=== PATIENT | female | born 1950 | race Caucasian/White ===

== ENCOUNTER 2024-01-17 15:11 | Observation (INO) | payer OTHER, MEDICARE, SELFPAY ==
[2024-01-17] VITALS (14 sets, daily range): BP systolic 160–187; BP diastolic 70–105; PULSE 58–76; RESP 18–31; TEMP 36.7–37.2; O2SAT 95–99; BMI 46.0
--- NOTE | 2024-01-17 15:56 | DI.RAD.S_ITS ---
PROCEDURE: XR CHEST 1V INDICATIONS: Possible stroke TECHNIQUE: One view of the chest was acquired. COMPARISON: None. FINDINGS: Surgical changes and devices: None. Lungs and pleura: Lungs are clear. No pleural effusions or pneumothorax. Mediastinum: Mediastinal contours appear normal. Heart size is enlarged. Bones and chest wall: No suspicious bony lesions. Overlying soft tissues appear unremarkable. IMPRESSION: No acute cardiopulmonary pathology. Dictated by: Miguel A Borges M.D. on 01/17/2024 at 16:39 Approved by: Miguel A Borges M.D. on 01/17/2024 at 16:39
--- NOTE | 2024-01-17 15:56 | DI.CT.S_ITS ---
PROCEDURE: CT STROKE INDICATIONS: Positive BE-FAST, Stroke symptoms TECHNIQUE: Noncontrast 4.5 mm thick angled axial sections acquired from the foramen magnum to the vertex, with coronal reformats. For radiation dose reduction, the following was used: automated exposure control, adjustment of mA and/or kV according to patient size. COMPARISON: None. FINDINGS: Image quality: Diagnostic. CSF spaces: Basal cisterns are patent. No extra-axial fluid collections. The ventricles are symmetric in size and shape. Brain: No intracranial bleeds or masses. Focal hypodensity involving left side of the janet series 2, image 6 concerning for pontine infarction of indeterminate age. There is cerebral volume loss for age, with resultant ventricular and sulcal prominence. There are periventricular and deep white matter chronic small vessel ischemic changes. There is intracranial internal carotid artery atherosclerosis. Skull and face: Calvarium and visualized facial bones appear intact, without suspicious lesions. Sinuses: Visualized sinuses and mastoids are clear. IMPRESSION: 1. Finding could represent left pontine infarction of indeterminate age. No acute intracranial bleed, midline shift or mass effect. 2. Age related volume loss and moderate white matter chronic small vessel ischemic changes. Findings were reported to Dr. Packer in the ER on 01/17/2024 at 4:15 p.m.. This study fulfills neurological imaging criteria for inclusion or exclusion of acute stroke therapies based on available published neurological guidelines. Dictated by: Miguel A Borges M.D. on 01/17/2024 at 16:13 Approved by: Miguel A Borges M.D. on 01/17/2024 at 16:16
--- NOTE | 2024-01-17 16:03 | DI.CT.S_ITS ---
PROCEDURE: CT ANGIO HEAD AND NECK INDICATIONS: slurring of speech TECHNIQUE: After the administration of intravenous contrast, 1 mm thick sections acquired from the aortic arch through the [place]. 3-dimensional vnkjapw-lruuipsti-rqilwajxpr (MIP) and/or volume rendering reformats were acquired of the central intracranial vasculature and neck separately. For radiation dose reduction, the following was used: automated exposure control, adjustment of mA and/or kV according to patient size. COMPARISON: None. FINDINGS: Image quality: Diagnostic. BRAIN: CSF spaces: Ventricles are normal in size and shape. Basal cisterns are patent. No extra-axial fluid collections. Brain: No significant abnormality of the brain can be seen. Skull and face: Calvarium and facial bones appear intact, without suspicious lesions. Orbits appear normal. Sinuses: Mucosal thickening in right maxillary sinus is seen. Bilateral ethmoid air cells are well aerated. HEAD CT ANGIOGRAPHY: Anterior circulation: Intracranial internal carotid arteries are normal in size and flow. The flow within the paired anterior cerebral arteries is normal and symmetric. The flow within the middle cerebral arteries is normal and symmetric. The anterior communicating artery is seen. No aneurysms are seen. Posterior circulation: Visualized portions of the vertebral arteries demonstrate normal caliber, and join to form a normal appearing basilar artery. Flow within the posterior cerebral arteries is normal and symmetric. No aneurysms are seen. NECK CT ANGIOGRAPHY: Carotid system: The great vessels demonstrate a conventional anatomy as they arise from the aortic arch. The origins of the common carotid arteries appear patent. The common carotid arteries demonstrate normal caliber and courses. The bifurcation regions are both widely patent. The internal carotid arteries demonstrate normal calibers and courses. Posterior circulation: The origins of the vertebral arteries both appear widely patent. Dominant right vertebral artery is seen. The more superior extracranial portions of both vertebral arteries also demonstrate normal courses and calibers. They join to form a normal appearing basilar artery. Soft tissues: Visualized neck soft tissues demonstrate no suspicious abnormalities. Bones: No suspicious bony lesions. Visualized cervical spine appears normally aligned. IMPRESSION: 1. No significant intracranial arterial abnormality is seen. 2. No significant abnormality is seen within the arteries of the neck. 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 3. No area of abnormal intracranial enhancement. 4. Right maxillary sinusitis. Any quantitative measurements of stenosis were performed using NASCET criteria. Dictated by: Miguel A Borges M.D. on 01/17/2024 at 16:36 Approved by: Miguel A Borges M.D. on 01/17/2024 at 16:39
[2024-01-17 16:08] LABS: Add Manual Diff / Slide Review NO; Basophils Absolute Auto 0 /uL (0-100); Basophils Percent Auto 0.2 % (0-2); Eosinophils Absolute Auto 200 /uL (0-450); Eosinophils Percent Auto 1.9 % (2-4); Hematocrit 36.9 % (36-46); Hemoglobin 11.7 g/dL (12.0-16.0); Lymphocytes Absolute Auto 1500 /uL (1100-4500); Mean Corpuscular HGB Conc 31.6 % (30-36); Mean Corpuscular Hemoglobin 21.1 PG (26-34); Mean Corpuscular Volume 66.5 fL (80-100); Monocytes Absolute Auto 600 /uL (0-900); Neutrophils Absolute Auto 6200 /uL (1500-7000); Neutrophils Percent Auto 72.9 % (50-75); Platelet Count 223 X10^3/uL (150-400); Red Blood Cell Count 5.55 X10^6/uL (4.0-5.2); Red Cell Distribution Width 15.6 % (11.6-14.8); White Blood Cell Count 8.5 X10^3/uL (4.5-11.0)
[2024-01-17 16:12] LABS: INR 0.9 (0.9-1.3); Prothrombin Time 10.8 SECONDS (9.4-12.5)
[2024-01-17 16:14] LABS: PTT Partial Thromboplastin Tim 27 SECONDS (25.1-36.5)
--- NOTE | 2024-01-17 16:14 | ED.NEUROSD ---
HPI - Neuro Symptoms/Deficit General Chief Complaint: Neuro Symptoms/Deficit Stated Complaint: slurred speech Time Seen by Provider: 01/17/24 16:03 Source: patient Mode of arrival: Ambulatory History of Present Illness HPI Narrative: Patient is 73-year-old female history of pulmonary hypertension hypertension hyperlipidemia obesity presenting today with slurring of speech. She is currently visiting from [place]. Her sister reports that she reviewed tape from the ring camera and at 5:30 a.m. this morning she was found talking normally to the. By about 830 she had some slurring of speech. Sister reports that she was trying to tell her her sprinkler head was broken however she could not quite understand her in her speech was very slurred. EMS was called and evaluated by EMS however they did not transport her patient did not want to come. She had no facial droop with a time numbness tingling or weakness. Sister reports that speech difficulty has come and gone throughout the day and by this afternoon she started to notice some left facial droop. At which point she brought her to the emergency department. Patient continues to have some mild slurring of speech On Anticoagulants: No Related Data Home Medications Medication Instructions Recorded Confirmed acetaminophen 500 mg capsule 1,000 mg PO BID 01/17/24 01/17/24 aspirin 81 mg chewable tablet 81 mg PO 1XD 01/17/24 01/17/24 cholecalciferol (vitamin D3) 25 25 mcg PO DAILY 01/17/24 01/17/24 mcg (1,000 unit) capsule (Vitamin D3) hydrochlorothiazide 12.5 mg tablet 12.5 mg PO DAILY 01/17/24 01/17/24 lisinopril 40 mg tablet 40 mg PO BID 01/17/24 01/17/24 milk thistle 500 mg capsule 1,000 mg PO BID 01/17/24 01/17/24 nebivolol 5 mg tablet (Bystolic) 5 mg PO DAILY 01/17/24 01/17/24 sildenafil (pulm.hypertension) 20 20 mg PO TID 01/17/24 01/17/24 mg tablet simvastatin 10 mg tablet 10 mg PO ONCE PM 01/17/24 01/17/24 Allergies Allergy/AdvReac Type Severity Reaction Status Date / Time No Known Drug Allergies Allergy Verified 01/17/24 15:48 Review of Systems Hematologic/Lymphatic On Anticoagulants: No Patient History Medical History Pulmonary HTN HLD (hyperlipidemia) HTN (hypertension) Obesity MANDY (obstructive sleep apnea) Social History Smoking Status: Never smoker alcohol intake: current Smoking Status: Never smoker Substance Use Type: does not use Exam Initial Vital Signs Initial Vital Signs: Vital Signs Temperature 98.9 F 01/17/24 15:40 Pulse Rate 71 01/17/24 15:40 Respiratory Rate 18 01/17/24 15:40 Blood Pressure 184/105 H 01/17/24 15:40 Pulse Oximetry 96 01/17/24 15:40 Oxygen Delivery Method Room Air 01/17/24 15:40 GENERAL: Alert 73-year-old female. HEENT: Head atraumatic,EOMI, pupils reactive, face symmetric, moist mucous membranes CARDIOVASCULAR: Regular rate and rhythm without murmurs, rubs or gallops. RESPIRATORY: Breath sounds equal bilaterally, no wheezes rales or rhonchi. ABDOMEN: Soft, nontender. Normoactive bowel sounds all 4 quadrants. No guarding or rebound. EXTREMITIES: Normal range of motion, no clubbing or edema. Neurovascularly intact NEUROLOGICAL: Alert and oriented x4.Normal gait and speech. Cranial nerves II through XII grossly intact. Good cglitu-vc-xuhv, good spkg-qt-[id number], strength equal bilaterally, mild slurring of speech sensation in tact to soft touch bilaterally, no visual changes, mild left facial droop SKIN: Sunburn noted on all extremities with demarcation Scores NIH Stroke Scale Level of Conciousness: Alert, keenly responsive Ask month/age: Answers both questions correctly. Open/close eyes, close hand: Performs both tasks correctly Best gaze horizontal: Normal Visual murillo: No visual loss Facial palsy: Minor paralysis, flattened nasolabial fold, asymmetry on smiling Left arm drift: No drift for full 10 sec Right arm drift: No drift for full 10 sec Left leg drift: No drift for full 5 sec Right leg drift: No drift for full 5 sec Limb ataxia: Absent Sensory on face/arms/legs: Normal, no sensory loss Best language: Mild to moderate, slurs some words Dysarthria: Normal Extinction or inattention: No abnormality Total NIH Stroke scale score: 2 Course Orders Ordered: ED Orders 01/17/24 15:55 Complete Blood Count AUTO DIFF Stat Comprehensive Metabolic Panel Stat Magnesium Stat PTT Partial Thromboplastin Dom Stat Prothrombin Time INR Stat Troponin & CK Cardiac Panel Stat 01/17/24 15:56 CT Stroke Stat XR chest 1V Stat 01/17/24 16:03 CT angio head and neck Stat 01/17/24 16:55 Urine Drug Screen, Rapid Stat Acetaminophen (Acetaminophen 325 Mg Tablet) 650 mg PO Q6H PRN PRN Reason: Fever/Mild Pain (1-3) Aspirin (Aspirin Ec 81 Mg Tablet) 81 mg PO DAILY [facility] Atorvastatin Calcium (Atorvastatin 20 Mg Tablet) 40 mg PO BEDTIME [facility] Clopidogrel Bisulfate (Clopidogrel 75 Mg Tablet) 75 mg PO DAILY [facility] Hydrochlorothiazide (Hydrochlorothiazide 25 Mg Tablet) 12.5 mg PO DAILY [facility] Lisinopril (Lisinopril 20 Mg Tablet) 40 mg PO BID [facility] Metoprolol Succinate (Metoprolol Er 25 Mg Tablet) 25 mg PO DAILY [facility] Naloxone HCl (Naloxone 0.4 Mg/Ml Vial) 0.2 mg IV Q2MIN PRN PRN Reason: Opiate Reversal Ondansetron HCl (Ondansetron 4 Mg/2 Ml Inj) 4 mg IV Q8HR PRN PRN Reason: Nausea And Vomiting Vitamin D (Cholecalciferol (Vitamin D3) 1,000 Unit Tablet) 1,000 unit PO DAILY [facility] Discontinued Medications Aspirin (Aspirin Ec 325 Mg Tablet) 325 mg PO NOW ONE Stop: 01/17/24 16:27 Last Admin: 01/17/24 16:30 Dose: 325 mg Documented By: FROYLAN Clopidogrel Bisulfate (Clopidogrel 75 Mg Tablet) 300 mg PO NOW ONE Stop: 01/17/24 18:39 Ondansetron HCl (Ondansetron 4 Mg/2 Ml Inj) 4 mg IV NOW PRN PRN Reason: Nausea And Vomiting Ondansetron HCl (Ondansetron 4 Mg Odt) 4 mg SL NOW PRN PRN Reason: Nausea And Vomiting Vital Signs Vital signs: Vital Signs - 8 hr 01/17/24 15:40 01/17/24 15:59 01/17/24 16:00 Temperature 98.9 F Pulse Rate 71 75 76 Respiratory Rate 18 25 H 27 H Blood Pressure 184/105 H Pulse Oximetry 96 96 96 Oxygen Delivery Method Room Air 01/17/24 16:29 01/17/24 16:29 01/17/24 16:30 Temperature Pulse Rate 73 72 Respiratory Rate 23 28 H Blood Pressure 186/81 H Pulse Oximetry 98 97 Oxygen Delivery Method 01/17/24 17:00 01/17/24 17:01 01/17/24 17:01 Temperature Pulse Rate 69 66 Respiratory Rate 19 20 Blood Pressure 178/70 H Pulse Oximetry 98 98 Oxygen Delivery Method 01/17/24 17:30 01/17/24 17:31 01/17/24 17:31 Temperature Pulse Rate 64 63 Respiratory Rate 21 31 H Blood Pressure 160/71 H Pulse Oximetry 98 98 Oxygen Delivery Method MDM - Neuro Symptoms/Deficit Lab Data 01/17/24 15:55 01/17/24 15:55 Labs: Lab Results 01/17/24 01/17/24 Range/Units 15:55 16:55 WBC 8.5 (4.5-11.0) X10^3/uL RBC 5.55 H (4.0-5.2) X10^6/uL Hgb 11.7 L (12.0-16.0) g/dL Hct 36.9 (36-46) % MCV 66.5 L (80-100) fL MCH 21.1 L (26-34) PG MCHC 31.6 (30-36) % RDW 15.6 H (11.6-14.8) % Plt Count 223 (150-400) X10^3/uL Neut % (Auto) 72.9 (50-75) % Lymph % (Auto) 18.0 L (25-40) % [place] % (Auto) 7.0 (3-14) % Eos % (Auto) 1.9 L (2-4) % Baso % (Auto) 0.2 (0-2) % Neut # (Auto) 6200 (3547-2910) /uL Lymph # (Auto) 1500 (6585-3105) /uL [place] # (Auto) 600 (0-900) /uL Eos # (Auto) 200 (0-450) /uL Baso # (Auto) 0 (0-100) /uL RBC Morphology See below Microcytosis 1+ H Ovalocytes 1+ H PT 10.8 (9.4-12.5) SECONDS INR 0.9 (0.9-1.3) APTT 27 (25.1-36.5) SECONDS Sodium 139 (137-145) mmol/L Potassium 4.1 (3.4-5.1) mmol/L Chloride 106 (98-107) mmol/L Carbon Dioxide 26 (22-32) mmol/L BUN 23 H (7-17) mg/dL Creatinine 1.08 H (0.52-1.04) mg/dL Estimated GFR 55 L (>60) mL/min BUN/Creatinine Ratio 21.3 (6-22) Glucose 105 (80-110) mg/dL Calcium 9.5 (8.4-10.2) mg/dL Magnesium 1.5 L (1.6-2.3) mg/dL Total Bilirubin 0.7 (0.2-1.3) mg/dL AST 26 (14-36) IU/L ALT 19 (<35) IU/L Alkaline Phosphatase 57 (38-126) U/L Total Creatine Kinase 184 H (30-135) U/L Troponin I < 0.012 (0.01-0.034) ng/mL Total Protein 7.2 (6.3-8.2) g/dL Albumin 4.2 (3.5-5.0) g/dL Globulin 3.0 (1.7-4.1) g/dL Albumin/Globulin Ratio 1.4 (1.0-2.8) U Opiates 300ng/mL cut Negative (Negative) Ur Oxycodone Screen Negative (Negative) Urine Methadone Screen Negative (Negative) Ur Barbiturates Screen Negative (Negative) U Tricyclic Antidepress Negative (Negative) Ur Phencyclidine Scrn Negative (Negative) Ur Amphetamines Screen Negative (Negative) U Methamphetamines Scrn Negative (Negative) Ur MDMA Scrn (Ecstasy) Negative (Negative) U Benzodiazepines Scrn Negative (Negative) Urine Cocaine Screen Negative (Negative) U Marijuana (THC) Screen Negative (Negative) Urine pH Normal (Normal) Urine Specific [place] Normal (Normal) Ur Creatinine Normal (Normal) Urine Dip Bedside Urine Glucose Negative Bedside Urine Bilirubin - Negative Bedside Urine Ketone - Negative Urine Specific [place] 1.005 Bedside Urine Occult Blood - Negative Bedside Urine pH 6.0 Bedside Urine Protein - Negative Bedside Urine Urobilinogen - Negative Bedside Urine Nitrite - Negative Bedside Urine Leukocytes - Negative Esterase Imaging Data CT scan - head: Radiologist's Impression: PROCEDURE: CT STROKE INDICATIONS: Positive BE-FAST, Stroke symptoms TECHNIQUE: Noncontrast 4.5 mm thick angled axial sections acquired from the foramen magnum to the vertex, with coronal reformats. For radiation dose reduction, the following was used: automated exposure control, adjustment of mA and/or kV according to patient size. COMPARISON: None. FINDINGS: Image quality: Diagnostic. CSF spaces: Basal cisterns are patent. No extra-axial fluid collections. The ventricles are symmetric in size and shape. Brain: No intracranial bleeds or masses. Focal hypodensity involving left side of the janet series 2, image 6 concerning for pontine infarction of indeterminate age. There is cerebral volume loss for age, with resultant ventricular and sulcal prominence. There are periventricular and deep white matter chronic small vessel ischemic changes. There is intracranial internal carotid artery atherosclerosis. Skull and face: Calvarium and visualized facial bones appear intact, without suspicious lesions. Sinuses: Visualized sinuses and mastoids are clear. IMPRESSION: 1. Finding could represent left pontine infarction of indeterminate age. No acute intracranial bleed, midline shift or mass effect. 2. Age related volume loss and moderate white matter chronic small vessel ischemic changes. Findings were reported to Dr. Packer in the ER on 01/17/2024 at 4:15 p.m.. This study fulfills neurological imaging criteria for inclusion or exclusion of acute stroke therapies based on available published neurological guidelines. Dictated by: Miguel A Borges M.D. on 01/17/2024 at 16:13 CTA - brain/neck: Radiologist's Impression: PROCEDURE: CT ANGIO HEAD AND NECK INDICATIONS: slurring of speech TECHNIQUE: After the administration of intravenous contrast, 1 mm thick sections acquired from the aortic arch through the [place] of [place]. 3-dimensional vxvhtyh-latomtyrm-usfyhysiht (MIP) and/or volume rendering reformats were acquired of the central intracranial vasculature and neck separately. For radiation dose reduction, the following was used: automated exposure control, adjustment of mA and/or kV according to patient size. COMPARISON: None. FINDINGS: Image quality: Diagnostic. BRAIN: CSF spaces: Ventricles are normal in size and shape. Basal cisterns are patent. No extra-axial fluid collections. Brain: No significant abnormality of the brain can be seen. Skull and face: Calvarium and facial bones appear intact, without suspicious lesions. Orbits appear normal. Sinuses: Mucosal thickening in right maxillary sinus is seen. Bilateral ethmoid air cells are well aerated. HEAD CT ANGIOGRAPHY: Anterior circulation: Intracranial internal carotid arteries are normal in size and flow. The flow within the paired anterior cerebral arteries is normal and symmetric. The flow within the middle cerebral arteries is normal and symmetric. The anterior communicating artery is seen. No aneurysms are seen. Posterior circulation: Visualized portions of the vertebral arteries demonstrate normal caliber, and join to form a normal appearing basilar artery. Flow within the posterior cerebral arteries is normal and symmetric. No aneurysms are seen. NECK CT ANGIOGRAPHY: Carotid system: The great vessels demonstrate a conventional anatomy as they arise from the aortic arch. The origins of the common carotid arteries appear patent. The common carotid arteries demonstrate normal caliber and courses. The bifurcation regions are both widely patent. The internal carotid arteries demonstrate normal calibers and courses. Posterior circulation: The origins of the vertebral arteries both appear widely patent. Dominant right vertebral artery is seen. The more superior extracranial portions of both vertebral arteries also demonstrate normal courses and calibers. They join to form a normal appearing basilar artery. Soft tissues: Visualized neck soft tissues demonstrate no suspicious abnormalities. Bones: No suspicious bony lesions. Visualized cervical spine appears normally aligned. IMPRESSION: 1. No significant intracranial arterial abnormality is seen. 2. No significant abnormality is seen within the arteries of the neck. 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 3. No area of abnormal intracranial enhancement. 4. Right maxillary sinusitis. Any quantitative measurements of stenosis were performed using NASCET criteria. Dictated by: Miguel A Borges M.D. on 01/17/2024 at 16:36 Chest x-ray: Radiologist's Impression: PROCEDURE: XR CHEST 1V INDICATIONS: Possible stroke TECHNIQUE: One view of the chest was acquired. COMPARISON: None. FINDINGS: Surgical changes and devices: None. Lungs and pleura: Lungs are clear. No pleural effusions or pneumothorax. Mediastinum: Mediastinal contours appear normal. Heart size is enlarged. Bones and chest wall: No suspicious bony lesions. Overlying soft tissues appear unremarkable. IMPRESSION: No acute cardiopulmonary pathology. Dictated by: Miguel A Borges M.D. on 01/17/2024 at 16:39 Approved by: Miguel A Borges M.D. on 01/17/2024 at 16:39 [facility] Narrative Medical decision making narrative: Patient is 73-year-old female history of pulmonary hypertension obesity MANDY presenting today with left facial droop and difficulty speaking. Symptoms started roughly around 830 this morning they have been waxing and waning throughout the day but progressive worsening left facial droop. Concern for CVA. She is out of the window for TNK. She has no other evidence of large vessel occlusion on exam or on CT angio. NIH stroke scale [address], no acute intracranial hemorrhage but concern for possible left pontine infarct. Blood work has been reviewed WBC 8.5, hemoglobin 11.7, hematocrit 36.9, sodium 139, potassium 4.1, chloride 106, carbon dioxide 26, BUN 23, creatinine 1.0, magnesium 1.5 creatinine 184 troponin negative EKG was ordered but unfortunately not done patient was transferred upstairs prior to it being completed Patient signs and symptoms consistent with CVA persistent left facial droop ongoing slurred speech no indication for TNK no evidence of large vessel occlusion. She is given aspirin. Dr. Madrigal accepts patient. Discharge Plan Departure Patient Disposition: Admitted as Observation Clinical Impression: Cerebrovascular accident Admit Date/Time: 01/17/24 17:42 Admit Provider: Roger Madrigal
[2024-01-17 16:16] LABS: Alanine Aminotransferase 19 IU/L (<35); Albumin 4.2 g/dL (3.5-5.0); Albumin Globulin Ratio 1.4 (1.0-2.8); Alkaline Phosphatase 57 U/L (38-126); Aspartate Aminotransferase 26 IU/L (14-36); BUN Creatinine Ratio 21.3 (6-22); Bilirubin Total 0.7 mg/dL (0.2-1.3); Blood Urea Nitrogen 23 mg/dL (7-17); Calcium 9.5 mg/dL (8.4-10.2); Carbon Dioxide 26 mmol/L (22-32); Chloride 106 mmol/L (98-107); Creatine Kinase 184 U/L (30-135); Estimated Glomerular Filt Rate 55 mL/min (>60); Glucose 105 mg/dL (80-110); HEMOLYSIS < 15 (0-50); Magnesium 1.5 mg/dL (1.6-2.3); Potassium 4.1 mmol/L (3.4-5.1); Sodium 139 mmol/L (137-145); Total Protein 7.2 g/dL (6.3-8.2)
[2024-01-17 16:20] LABS: Microcytosis 1+; Ovalocytes 1+
[2024-01-17 16:27] LABS: Troponin I < 0.012 ng/mL (0.01-0.034)
[2024-01-17] MEDS: ASPIRIN EC 325 MG TABLET PO (16:30)
[2024-01-17 17:06] LABS: UR Morphine/Opiate cutoff 300 Negative (Negative); Ur Creatinine Normal (Normal); Ur Specific Gravity Normal (Normal); Urine Amphetamines Negative (Negative); Urine Barbiturates Negative (Negative); Urine Benzodiazepines Negative (Negative); Urine Cocaine Negative (Negative); Urine MDMA Negative (Negative); Urine Methadone Negative (Negative); Urine Methamphetamines Negative (Negative); Urine Oxycodone Negative (Negative); Urine Phencyclidine Negative (Negative); Urine Tetrahydrocannabinol Negative (Negative); Urine Tricyclic Antidepressant Negative (Negative); Urine pH Normal (Normal)
--- NOTE | 2024-01-17 18:09 | P.HP_ITS ---
History of Present Illness History of Present Illness Date Patient Seen: 01/17/24 Time Patient Seen: 18:09 Chief complaint: slurred speech Narrative: This is a 73 year old female with PMH of HTN, HLD, pulmonary HTN, obesity, MANDY on CPAP, CKD III who presents with waxing and waning slurred speech with progression to L facial droop. Symptoms started around 0830 this morning and were normal at 0530. She is visiting from [place] on a whale watching trip. she was initially evaluated by EMS whom did not think she had a stroke at the time, but as symptoms progressed to left facial droop over the course of the day she decided to come to the ER. She denies recent chest pain, palpitations. She has chronic dyspnea on exertion unchanged. No fever, chills, abdominal pain, nausea, vomiting or diarrhea. No worse LE swelling than normal. In the ER, she was hypertensive but the remaineder of her vitals were unremarkable. Labs were unremarkable except for cr 1.08, Mg 1.5. UDS was negative. She was admitted for further management of presumed acute stroke. [facility] Medical History Pulmonary HTN HLD (hyperlipidemia) HTN (hypertension) Obesity MANDY (obstructive sleep apnea) Social History Smoking Status: Never smoker Meds Home Medications and Allergies Home Medications Medication Instructions Recorded Confirmed Type acetaminophen 500 mg capsule 1,000 mg PO BID 01/17/24 01/17/24 History aspirin 81 mg chewable tablet 81 mg PO 1XD 01/17/24 01/17/24 History cholecalciferol (vitamin D3) 25 25 mcg PO DAILY 01/17/24 01/17/24 History mcg (1,000 unit) capsule (Vitamin D3) hydrochlorothiazide 12.5 mg tablet 12.5 mg PO DAILY 01/17/24 01/17/24 History lisinopril 40 mg tablet 40 mg PO BID 01/17/24 01/17/24 History milk thistle 500 mg capsule 1,000 mg PO BID 01/17/24 01/17/24 History nebivolol 5 mg tablet (Bystolic) 5 mg PO DAILY 01/17/24 01/17/24 History sildenafil (pulm.hypertension) 20 20 mg PO TID 01/17/24 01/17/24 History mg tablet simvastatin 10 mg tablet 10 mg PO ONCE PM 01/17/24 01/17/24 History Allergies Allergy/AdvReac Type Severity Reaction Status Date / Time No Known Drug Allergies Allergy Verified 01/17/24 15:48 Review of Systems Review of Systems Narrative: All other systems reviewed with the patient and are negative unless otherwise stated. Exam Vital Signs (past 8 hours): - 01/17/24 15:40 01/17/24 15:59 01/17/24 16:00 Temperature 98.9 F Pulse Rate 71 75 76 Respiratory Rate 18 25 H 27 H Blood Pressure 184/105 H Pulse Oximetry 96 96 96 Oxygen Delivery Method Room Air 01/17/24 16:29 01/17/24 16:29 01/17/24 16:30 Temperature Pulse Rate 73 72 Respiratory Rate 23 28 H Blood Pressure 186/81 H Pulse Oximetry 98 97 Oxygen Delivery Method 01/17/24 17:00 01/17/24 17:01 01/17/24 17:01 Temperature Pulse Rate 69 66 Respiratory Rate 19 20 Blood Pressure 178/70 H Pulse Oximetry 98 98 Oxygen Delivery Method 01/17/24 17:30 01/17/24 17:31 01/17/24 17:31 Temperature Pulse Rate 64 63 Respiratory Rate 21 31 H Blood Pressure 160/71 H Pulse Oximetry 98 98 Oxygen Delivery Method Oxygen Delivery Method Room Air Narrative Exam Narrative: General:? Patient is well developed and well nourished, in no distress at this time. HEENT:? Normocephalic, atraumatic, extraocular muscles intact, oral pharynx is clear and mucous membranes are moist. Neck: supple and symmetric, trachea is midline, no cervical adenopathy. Chest:? Normal AP diameter and contour without kyphoscoliosis, no tachypnea, equal chest rise bilaterally. Lungs:? CTA b/l no wheezing rhonchi or rales. Cardio:?RRR no m/r/g. Abdomen: S NT ND. Musculoskeletal:? Muscle strength and tone are equal within normal limits, no deformity. Extremities: No pitting edema or joint effusions. No cyanosis or clubbing. Skin: Sun burn in all exposed extremities. Neuro:? Alert and orientated x3,? sensation to touch intact in all extremities. Left facial droop with slightly slurred speech Psych:? Patient has a well-kept appearance, appropriate affect, mental status attitude thought context and judgment are appropriate for age. Objective ECG Impression: Normal sinus rhythm without acute ischemia Imaging Echo: Radiologist's impression: Transthoracic Echocardiography Report (TTE) Demographics Patient Name MELISSA RAMIREZ Gender Female A Patient Number [id number] Race Visit Number [id number] Ethnicity Corporate ID Room Number 09 Accession Number [id number] Date of Study 12/29/2021 Date of 1950 Age 71 year(s) Referring Physician COURTNEY DIAZ Snake Charmer Marga Palomino [facility] Interpreting [address] [place] [address]/ Student/Carpentry Specialist Physician LIV MARTI Procedure Type of Study TTE procedure:ECHOCARDIOGRAM 2D COMPLETE. Procedure Date Date: 12/29/2021 Start: 02:17 PM Study Location: [facility] Technical Quality: Limited visualization due to body habitus. Indications:Chest pain/CP. Patient Status: KAUR Contrast Medium: Definity. Amount - 3 ml Height: 72 inches Weight: 340 pounds BSA: 2.67 m^2 BMI: 46.11 kg/m^2 Rhythm: Sinus bradycardia HR: 56 bpm BP: 141/88 mmHg Conclusions Summary - Low normal left ventricular systolic function with an estimated ejection fraction of 50-55%. There is mild left ventricular hypertrophy (LVH). There is Grade I diastolic dysfunction. - No significant valvular pathology. Signature Valves Mitral Valve Peak E-Wave: 0.46 m/s Peak A-Wave: 0.79 m/s E/A Ratio: 0.58 Peak Gradient: 0.84 mmHg Deceleration Time: 261 msec Tissue Doppler E' Septal Velocity: 0.05 m/s E' Lateral Velocity: 0.07 m/s Aortic Valve Peak Velocity: 1.75 m/s Mean Velocity: 1.18 m/s Peak Gradient: 12.25 mmHg Mean Gradient: 6 mmHg Area (continuity): 2.41 cm^2 LORENA Index:0.9 AV VTI: 39.5 cm Dimensionless Index (DI):0.67 Pulmonic Valve Peak Velocity: 2.32 m/s Peak Gradient: 21.53 mmHg LVOT Peak Velocity: 1.18 m/s Mean Velocity: 0.77 m/s Peak Gradient: 6 mmHg Mean Gradient: 3 mmHg LVOT Diameter: 2.1 cm LVOT VTI: 27.5 cm Structures Left Atrium LA Volume: 86.97 ml LA Area: 26.6 cm^2 LA Volume/Index: 33 ml/m^2 Left Ventricle Diastolic Dimension: 5.85 cm Systolic Dimension: 4.22 cm Septum Diastolic: 1.14 cm PW Diastolic: 0.99 cm Area Systolic (4C): 30.4 cm^2 Area Diastolic (4C): 49.4 cm^2 FS: 27.9 % EF Calculated (Biplane): 60.3 % LV Length: 9.36 cm CI: 2 l/min*m^2 CO: 5.33 l/min Stroke Volume:95.25 ml LVOT Diameter: 2.1 cm Stroke Volume Index:35.67 E/E':10.02 Right Atrium RA Area: 23.7 cm^2 Right Ventricle Diastolic Dimension: 5.13 cm Miscellaneous Aorta Aortic Root: 3.1 cm Ascending Aorta: 3.7 cm Findings Mitral Valve The mitral valve is anatomically normal. There is trace mitral regurgitation. There is no evidence of mitral valve prolapse. Normal valvular dynamics and gradients. There is no mitral stenosis. There is no mitral annular calcification. Aortic Valve The trileaflet aortic valve appears sclerotic with good leaflet mobility. There is no significant aortic regurgitation. There is no significant aortic stenosis. Tricuspid Valve The tricuspid valve appears anatomically normal. There is trace tricuspid regurgitation. Unable to assess systolic pulmonary artery pressure due to inadequate tricuspid regurgitation signal. Pulmonic Valve The pulmonic valve is not well seen. There is trace pulmonic regurgitation noted. Left Atrium The left atrial size is normal. Left Ventricle Normal left ventricular chamber size. Low normal left ventricular systolic function with an estimated ejection fraction of 50-55%. There is mild left ventricular hypertrophy (LVH). There is Grade I diastolic dysfunction (E/A reversal, medial E/e' <15, medial e' < 7, normal LA and TR jet unavailable). No focal wall motion abnormalities noted; Definity contrast was administered to enhance visualization of the endocardium. Right Atrium The right atrium is mildly dilated in size. Right Ventricle Dilated right ventricle and normal right ventricular function. Pericardial Effusion There is no significant pericardial effusion. Miscellaneous Proximal ascending aorta appears within normal limits. IVC is not well visualized. 2D, Color Flow and Doppler were performed throughout the study. Billing CPT(R)Codes(CPT copyright 2007 [employer] [place] [employer]. All rights reserved) 1) [id number], transthoracic, real-time with image documentation (2-D), includes M-mode recording, when performed, complete, with spectral doppler and with color flow doppler echocardiography.. ICD Codes 1) R07.9-Chest pain (CP), unspecified. Exam End: 12/29/21 2:17 PM Specimen Collected: 12/29/21 2:17 PM Last Resulted: 12/29/21 7:19 PM Received From: [facility] Auto-reconciled Result Result Received: 01/17/24 6:11 PM Labs 01/17/24 15:55 01/17/24 15:55 Labs: Laboratory Results - last 24 hr 01/17/24 01/17/24 15:55 16:55 WBC 8.5 RBC 5.55 H Hgb 11.7 L Hct 36.9 MCV 66.5 L MCH 21.1 L MCHC 31.6 RDW 15.6 H Plt Count 223 Neut % (Auto) 72.9 Lymph % (Auto) 18.0 L Estill % (Auto) 7.0 Eos % (Auto) 1.9 L Baso % (Auto) 0.2 Neut # (Auto) 6200 Lymph # (Auto) 1500 [place] # (Auto) 600 Eos # (Auto) 200 Baso # (Auto) 0 RBC Morphology See below Microcytosis 1+ H Ovalocytes 1+ H PT 10.8 INR 0.9 APTT 27 Sodium 139 Potassium 4.1 Chloride 106 Carbon Dioxide 26 BUN 23 H Creatinine 1.08 H Estimated GFR 55 L BUN/Creatinine Ratio 21.3 Glucose 105 Calcium 9.5 Magnesium 1.5 L Total Bilirubin 0.7 AST 26 ALT 19 Alkaline Phosphatase 57 Total Creatine Kinase 184 H Troponin I < 0.012 Total Protein 7.2 Albumin 4.2 Globulin 3.0 Albumin/Globulin Ratio 1.4 U Opiates 300ng/mL cut Negative Ur Oxycodone Screen Negative Urine Methadone Screen Negative Ur Barbiturates Screen Negative U Tricyclic Antidepress Negative Ur Phencyclidine Scrn Negative Ur Amphetamines Screen Negative U Methamphetamines Scrn Negative Ur MDMA Scrn (Ecstasy) Negative U Benzodiazepines Scrn Negative Urine Cocaine Screen Negative U Marijuana (THC) Screen Negative Urine pH Normal Urine Specific Chilo Normal Ur Creatinine Normal Assessment & Plan Assessment & Plan narrative: This is a 73 year old female with PMH of HTN, HLD, pulmonary HTN, obesity, MANDY on CPAP who presents with waxing and waning slurred speech with progression to L facial droop. She is admitted with a presumed acute CVA 1. CVA, acute, present on admission - MRI ordered to confirm diagnosis - CT and CTA without acute findings - telemetry ordered - A1c, TSH, A1c ordered - PT/OT speech orders - gave plavix load, continue asa and plavix x21 days, recommend changing from asa to plavix chronically after unless evidence of afib. - atorvastatin 40 mg nightly changed from home simvastatin 10. - limited TTE order, please see copied prior TTE report from cardiology documentation ([place]). No documentation of lack of PFO / atrial shunt. Ordered limited TTE to rule out PFO. 2. Hypertension - continue home medications, allowing for permissive HTN. Changing nonformulary nebivolol to metoprolol. 3. MANDY on CPAP - continue home CPAP 4. Pulmonary hypertension - hold home sildenafil 5. Hyperlipidemia - increase statin as noted above 6. Hypomagnesemia - replete with 2g IV x1. - repeat Mg in the AM Code: Full, surrogate is patient's sister DVT: Lovenox daily I have utilized all available immediate resources to obtain, update, or review the patient's current medications. Dispo: patient admitted under observation status. Possible discharge home tomorrow if no progression of stroke symptoms and cleared by therapies tomorrow. Additional history obtained via discussions with the ER provider. These discussions contributed to the creation of the above assessment and plan. I have reviewed patient's presenting documentation, labs, and imaging personally. Time-Based Coding :: [TOTAL MINUTES] spent with patient and on the chart (including review of chart, obtaining history, exam, reviewing outside data, placing orders, documenting exam and treatment plan, and counseling patient) on [DATE]. Quality MIPS - Admit I confirm the patient?s Advance Care Plan is present, Code status is documented, Surrogate decision maker is in patient?s record [If Yes, STOP here]: Yes
[2024-01-17] MEDS: CLOPIDOGREL 75 MG TABLET 300 MG PO (20:21)
[2024-01-17] MEDS: ATORVASTATIN 20 MG TABLET 40 MG PO (20:21)
[2024-01-17] MEDS: MAGNESIUM SULFATE 2 GM/50 ML PIGGYBACK IV (20:36)
[2024-01-18] VITALS: BP 144/82; PULSE 80; RESP 17; TEMP 36.4; O2SAT 96
--- NOTE | 2024-01-18 04:19 | PC.NURSE ---
2049: ELECTRICIAN'S HELPER made this RN aware that patient HR is dropping as low as 47, Hospitalist Dr. Bustos made aware at this time.
[2024-01-18 05:26] VITALS: BP 149/87; PULSE 60; RESP 17; TEMP 37; O2SAT 97
[2024-01-18 06:51] LABS: Add Manual Diff / Slide Review NO; Basophils Absolute Auto 0 /uL (0-100); Basophils Percent Auto 0.6 % (0-2); Eosinophils Absolute Auto 200 /uL (0-450); Eosinophils Percent Auto 2.4 % (2-4); Hematocrit 34.9 % (36-46); Hemoglobin 11.2 g/dL (12.0-16.0); Lymphocytes Absolute Auto 1900 /uL (1100-4500); Mean Corpuscular HGB Conc 32.1 % (30-36); Mean Corpuscular Hemoglobin 21.2 PG (26-34); Mean Corpuscular Volume 65.9 fL (80-100); Monocytes Absolute Auto 400 /uL (0-900); Monocytes Percent Auto 5.9 % (3-14); Neutrophils Absolute Auto 4100 /uL (1500-7000); Neutrophils Percent Auto 62.1 % (50-75); Platelet Count 210 X10^3/uL (150-400); Red Cell Distribution Width 15.9 % (11.6-14.8); White Blood Cell Count 6.7 X10^3/uL (4.5-11.0)
[2024-01-18 07:03] LABS: Alanine Aminotransferase 16 IU/L (<35); Albumin Globulin Ratio 1.7 (1.0-2.8); Alkaline Phosphatase 49 U/L (38-126); Aspartate Aminotransferase 24 IU/L (14-36); Bilirubin Total 0.7 mg/dL (0.2-1.3); Blood Urea Nitrogen 16 mg/dL (7-17); Calcium 9.1 mg/dL (8.4-10.2); Carbon Dioxide 28 mmol/L (22-32); Chloride 105 mmol/L (98-107); Cholesterol 145 mg/dL (140-199); Estimated Glomerular Filt Rate > 60 mL/min (>60); Globulin 2.4 g/dL (1.7-4.1); Glucose 127 mg/dL (80-110); HDL Cholesterol 55 mg/dL (40-60); HEMOLYSIS < 15 (0-50); LDL Cholesterol Calculated 61 mg/dL (<100); Magnesium 1.9 mg/dL (1.6-2.3); Sodium 140 mmol/L (137-145); Total Protein 6.4 g/dL (6.3-8.2); Triglycerides 147 mg/dL (35-150)
[2024-01-18 07:05] LABS: Hypochromasia 2+; Microcytosis 2+
[2024-01-18 07:11] LABS: Hemoglobin A1C% w Est Avg Glu 6.3 % (4.0-6.0)
[2024-01-18 07:30] VITALS: BP 139/96; PULSE 55; RESP 20; TEMP 36.7; O2SAT 96
[2024-01-18 07:37] LABS: TSH w/ Reflex to FT4 1.15 uIU/mL (0.47-4.68)
--- NOTE | 2024-01-18 08:53 | ST.IPCSEOM ---
Visit Care Team Role Provider Type Neil Aparicio MD Primary Care Provider Non-Staff Specialty: Family Practice Address: [address] [place] [address], [address] Email: Vangie Packer DO Emergency Provider Physician Referring Provider Specialty: Emergency Medicine Address: [address] [place] [address], [address] Email: [email or web address] Admit Provider Physician Attending Provider Specialty: Internal Medicine Address: [address] [place] [address], [address] Email: [email or web address] Past Medical History (Last Reviewed 01/17/24 @ 19:53 by Roger Madrigal DO) HLD (hyperlipidemia) (Medical) HTN (hypertension) (Medical) Obesity (Medical) MANDY (obstructive sleep apnea) (Medical) Pulmonary HTN (Medical) 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 Madrigal Reason for Referral CVA Setting Assessment Location Acute Care Visit Type Note Type Initial evaluation Patient Information Identification Type Name,Wristband History Per H&P: This is a 73 year old female with PMH of HTN, HLD, pulmonary HTN, obesity, MANDY on CPAP, CKD III who presents with waxing and waning slurred speech with progression to L facial droop. Symptoms started around 0830 this morning and were normal at 0530. She is visiting from [place] on a whale watching trip. she was initially evaluated by EMS whom did not think she had a stroke at the time, but as symptoms progressed to left facial droop over the course of the day she decided to come to the ER. She denies recent chest pain, palpitations. She has chronic dyspnea on exertion unchanged. No fever, chills, abdominal pain, nausea , vomiting or diarrhea. No worse LE swelling than normal. In the ER, she was hypertensive but the remaineder of her vitals were unremarkable. Labs were unremarkable except for cr 1. 08, Mg 1.5. UDS was negative. She was admitted for further management of presumed acute stroke. PMHx significant for: Pulmonary HTN HLD (hyperlipidemia) HTN (hypertension) Obesity MANDY (obstructive sleep apnea) Pt referred for ST evaluation d/t left facial droop, slurred speech and potential CVA. Subjective Observations Pt sitting upright in chair in room with breakfast meal tray on tray table in front of her . She reports improvements with speech and denies any swallowing difficulties. Pt Ox3, able to make needs known. Compliant with evaluation. Reported by Patient/Caregiver Current Diet Regular (IDDSI 7) Baseline Feeding Method Independent in self-feeding The IDDSI Framework Protocol: IDDSI.1 Objective Assessment Mental Status Alert,Responsive,Cooperative Oral Integrity WFL Comment Pt with natural dentition, good condition. Right facial droop while smiling, however left droop facial rest with overall left sided facial weakness. She reports mild left sided anterior spillage, however has improved. Mild lingual and labial weakness, ROM WNL. Food and Liquid Trials Position During Assessment Upright (90 degrees) Liquids Trialed Thin (IDDSI 0) Solid Trials Regular (IDDSI 7) Administration Type Straw,Self-feeding Oral Impairment Within functional limits Oral Phase Comments Pt consumed henry crackers and about 6 oz of thin water via straw. Pt able to feed self appropriately. For solids , Pt demonstrated adequate bite size and rate, prolonged mastication however adequate bolus formation and control, extended ap transport, minimal oral stasis. For liquids Pt demonstrated adequate suction, good oral acceptance and containment, timely ap transport. Pharyngeal Impairment Within functional limits Pharyngeal Phase Comments No overt s/s of aspiration with all PO trials, including coughing/choking or reports of food feeling stuck in throat. Fatigue/Endurance Endurance WNL The IDDSI Framework Protocol: IDDSI.1 Findings Swallowing Function Within functional limits Severity of Swallow Impairment Within functional limits Prognosis Good Based on Cognitive status,Family support Impact on Safety and Functioning No limitations Recommendations Instrumental Assessment No Swallowing Treatment No Recommended Solids Regular (IDDSI 7) Recommended Liquids Thin (IDDSI 0) Other Recommendations Pt presents with WFL in regards to swallow function. ST recommends IDDSI 7/IDDSI 0 with the below mentioned safe swallowing strategies in place . Informal speech/cog assessment revealed WFL. ST recommends re-referral if change in status. Safety Precautions/Swallowing Remain upright (90 degrees) Recommendations during all oral intake,Upright position at least 30 minutes after meals,Small bites and sips when eating,Slow rate; swallow between bites, Alternate liquids and solids Medication Recommendations As Tolerated Discharge Recommendations Home Education Patient/Caregiver Education Described results of evaluation,Patient expressed understanding of evaluation
--- NOTE | 2024-01-18 09:03 | OT.IP.EVAL ---
Past Medical History (Last Reviewed 01/17/24 @ 19:53 by Roger Madrigal DO) HLD (hyperlipidemia) HTN (hypertension) Obesity MANDY (obstructive sleep apnea) Pulmonary HTN Occupational Therapy Inpatient Evaluation/Re-Eval M1 PT/OT-IP Prior Functional Status Start: 01/18/24 10:13 Freq: NEEDED Status: Active Protocol: Document 01/18/24 11:53 CGR (Rec: 01/18/24 12:01 CGR [id number]) Medical Review Prior Functional Status Medical History Reviewed Yes Diet/Fluid Consistency Regular Communication Pt is an effective verbal communicator. Mobility and Gait Ind to MOD I with use of a 4ww specifically for shopping. 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 Social History Household Members none Living Arrangements House Number of Floors (Floors) Two Floors Number of Stairs To Enter/Railing? no steps to enter and elevator to other floor. Home Environment High Toilet,Walk in Shower Home Equipment Front Wheel Walker,Four Wheel Walker,Hand Held Shower,Grab Bars Near Toilet,Grab Bars In Shower Employment Status Retired Additional Social History Comment Pt sleeps in a flat bed. Pt states her home set up in [place] is a SS house with no steps, toilet riser on her low toilet and a wlak in shower. M2 OT-IP Current Condition Start: 01/18/24 11:53 Freq: Status: Active Protocol: Document 01/18/24 11:53 CGR (Rec: 01/18/24 12:01 CGR [id number]) Occupational Therapy Current Condition Current Condition Evaluation Date 01/18/24 Treatment Diagnosis slurred speech, L facial droop . Diagnosis Onset Date 01/17/24 M3 OT- IP Subjective and Pain Start: 01/18/24 11:53 Freq: Status: Active Protocol: Document 01/18/24 11:53 CGR (Rec: 01/18/24 12:01 CGR [id number]) OT- Subjective Occupational Therapy Visit Type Type Initial Evaluation Visit Start Time 08:47 Visit Stop Time 09:03 OT Pain Assessment Pain When Pain Assessed At Rest Pain Present Pain Present Denied Pain M4 OT- IP ADL's Start: 01/18/24 11:53 Freq: Status: Active Protocol: Document 01/18/24 11:53 CGR (Rec: 01/18/24 12:01 R [id number]) OT [id number] Comments OT Self-Feeding Comments not meal time OT ADL-Grooming General Evaluation Grooming Ability Independent Areas Needing Assistance Retrieving/Set-up of Grooming Items,Combing/Brushing Hair, Face Washing Comments OT Grooming Comments standing at sink OT ADL-Oral Care General Eval Oral Care Ability Independent Areas of Assistance Brushing Teeth,Retrieving/Set- Up of Items Comments Oral Care Comments standing at sink OT ADL-Dressing Comments OT Dressing Comments Pt states she is not able to don socks at baseline but is aware of 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 OT ADL-Toileting General Evaluation Toileting Ability Independent OT ADL-Bathing Comments OT Bathing Comments not performed M5 OT- IP IADL's Start: 01/18/24 11:53 Freq: Status: Active Protocol: Document 01/18/24 11:53 CGR (Rec: 01/18/24 12:01 R [id number]) OT-Instrumental Activities of Daily Living Deficits IADL Deficits Identified No Deficits Home Safety Awareness Awareness of Need for Assistance at Home Good Awareness Ability to Problem Solve Emergency Able to Problem Solve Situations Medication Management Medication Management No Deficits Identified Money Management Money Management No Deficits Identified Meal Preparation Meal Preparation No Deficits Identified Radiology Special Procedure Tech Radiology Special Procedure Tech No Deficits Identified Driving Driving Comments Pt is an active van driver helper M6 OT- IP Functional Cognition Start: 01/18/24 11:53 Freq: Status: Active Protocol: Document 01/18/24 11:53 CGR (Rec: 01/18/24 12:01 R [id number]) Cognitive Factors Limiting Selfcare Function Cognitive Ability Level of Alertness Alert Patient Orientation Name,Age,Birthday,Month,Date, Year,Day of Week,Place, Situation Attention Span Ability Capable of Focused Attention, Capable of Sustained Attention Ability to Follow Commands Able to Follow One Step Commands with Increased Time, Able to Follow One Step Commands with Repetition OT- Vision and Hearing OT- Hearing Assessment OT- Hearing Assessment WFL OT- Vision Assessment Visual Acuity Glasses For Reading Visual Attentiveness WFL Occular Pursuits WFL Visual Convergence WFL M7 OT- IP Mobility and Balance Start: 07/22/24 11:53 Freq: Status: Active Protocol: Document 01/18/24 11:53 CGR (Rec: 01/18/24 12:01 CGR [id number]) OT-Transfer Assessment Sit to and From Stand Sit to and from Stand Independent Transfers Transfer Ability Independent Technique Transfer Destination Chair,Toilet Transfer Technique Stand Step Pivot Devices Transfer Assistive Devices Gait Belt OT- Balance Assessment Sitting Balance and Reactions Static Sitting Balance Ability Normal Dynamic Sitting Balance Ability Normal M8 OT- IP Objective Assessments Start: 01/18/24 11:53 Freq: Status: Active Protocol: Document 01/18/24 11:53 CGR (Rec: 01/18/24 12:01 CGR [id number]) OT Gross Range of Motion Upper Extremity Range of Motion Assessment Within Functional Limits OT Strength Comments Strength Comments R shld 4/5, arm 5+/5, hand 5+/ 5 L shld 3+/5, arm 5/5, hand 5/5 OT- Coordination Assessment Upper Extremity Finger to Nose Test Within Functional Limits Finger Tapping Test Within Functional Limits OT-Muscle Tone Assessment Muscle Tone WNL Yes OT Sensation Assessment Edema Edema Absent M9 OT- IP Assessment and Plan Start: 01/18/24 11:53 Freq: Status: Active Protocol: Document 01/18/24 11:53 CGR (Rec: 01/18/24 12:01 CGR [id number]) OT Summary Assessment and Plan Potential Rehabilitation Potential Excellent Analytic Complexity at Evaluation Low Summary Progress Towards Goals Goals Met Assessment Summary Pt presents as a low complexity evaluation s/p amdi for stroke like symptoms. Pt with some weakness to the L shld. Pt appears to be at her baseline. No further OT needs. Frequency of Treatment Frequency Of Treatment Discharge Discharge Recommendations OT Discharge Recommendations Home Transportation Needs at Discharge Private Vehicle
[2024-01-18] MEDS: METOPROLOL ER 25 MG TABLET PO (09:45)
[2024-01-18] MEDS: ASPIRIN EC 81 MG TABLET PO (09:45)
[2024-01-18] MEDS: hydroCHLOROthiazide 25 MG TABLET 12.5 MG PO (09:45)
[2024-01-18] MEDS: CHOLECALCIFEROL (VITAMIN D3) 1,000 UNIT TABLET 1000 UNIT PO (09:46)
[2024-01-18] MEDS: lisinopriL 20 MG TABLET 40 MG PO (09:46)
[2024-01-18] MEDS: CLOPIDOGREL 75 MG TABLET PO (09:46)
--- NOTE | 2024-01-18 09:55 | DI.ECHO.S_ITS ---
[facility] : : [address] : : [place] : : [id number] : : Phone: [phone] Echocardiogram Report + + :Name: JAMES TROTTER Study Date: 01/18/2024 Height: 72 in : :Hospital ReadingLocation: Weight: 340 lb : : Gender: Female BSA: 2.7 m2 : :: 1950 Age: 73 yrs BP: 139/96 mmHg: :Reason For Study: CVA : :Ordering Physician: JOANNE, : :ALBERTO DUDLEY Performed By: Rick Turcios : :Referring: ALBERTO RUBIO DO : + + Interpretation Summary 1. The left ventricular contractility is normal. Estimated ejection fraction is greater than 55% with no segmental wall motion abnormalities. Mild concentric LVH. Impaired relaxation. 2. The right ventricular contractility is mildly compromised. 3. The right ventricle is mildly dilated. All other cardiac chambers are of normal size. 4. No significant valvular abnormalities are appreciated. 5. No obvious intracardiac shunts noted. 6. No intracardiac masses nor thrombi are appreciated. 7. No hemodynamically significant pericardial effusion identified. Conclusion: Mildly compromised right ventricular systolic function with preserved left ventricular systolic function and no significant valvular abnormalities nor obvious intracardiac shunts. Procedure: A two-dimensional transthoracic echocardiogram with color flow and Doppler was performed. A contrast injection of Definity was performed to improve assessment of LV function. The study quality was technically difficult. The patient had an echocardiogram, but there is no comparison study available. The heart rate ranged between 50-60 bpm during the study. Left Ventricle: The left ventricle is normal in size. Left ventricular wall thickness is mildly increased. The ejection fraction is estimated to be 60- 65%. Right Ventricle: The right ventricle is mildly dilated. Right ventricular systolic function is mildly reduced. Atria: The left atrial size is normal. Right atrial size is normal. The interatrial septum grossly appears intact with no obvious evidence for an atrial septal defect. Mitral Valve: The mitral valve is normal. There is no mitral valve stenosis. There is trace mitral regurgitation. Aortic Valve: The aortic valve is grossly normal. There is no aortic valve stenosis. No aortic regurgitation is present. Tricuspid Valve: The tricuspid valve is not well visualized. The tricuspid valve is not well visualized, but is grossly normal. There is no tricuspid stenosis. There is a trace or physiologic amount of tricuspid regurgitation. Pulmonic Valve: The pulmonic valve is not well visualized. There is mild pulmonic stenosis. There is no pulmonic valvular regurgitation. Great Vessels: The aortic root is normal size. The ascending aorta is at the upper limits of normal in size. The inferior vena cava was not visualized. Pericardium/ Pleura There is no pericardial effusion. There is no pleural effusion. MMode/2D Measurements & Calculations LVIDd: 5.3 cm LVOT diam: 2.1 cm LVIDs: 3.7 cm Ao root diam: 3.1 cm FS: 30.1 % asc Aorta Diam: 3.8 cm IVSd: 1.3 cm LVPWd: 1.3 cm LV nuñez. diameter/BSA (cm/m^2): 2.0 LV sys. diameter/BSA (cm/m^2): 1.4 LA A2 area: 25.9 cm2 RA long axis: 6.1 cm LA A4 area: 30.4 cm2 RA area: 28.7 cm2 LA length (vol): 6.8 cm RA vol: 115.2 ml LA vol: 97.8 ml RA : 43.1 ml/m2 LA vol index: 36.6 ml/m2 RVD1 (basal): 4.1 cm RVD2 (mid): 3.8 cm TAPSE: 2.8 cm Doppler Measurements & Calculations Ao V2 max: 175.3 cm/sec LVOT Max Kaushik: 128.6 cm/sec Ao V2 mean: 116.5 cm/sec LV V1 max P.6 mmHg Ao max P.3 mmHg LV V1 VTI: 29.7 cm Ao mean P.2 mmHg LORENA(I,D): 2.5 cm2 Ao V2 VTI: 39.0 cm LORENA(V,D): 2.4 cm2 sev ratio: 0.76 LORENA indexed to BSA (cm^2/m^2): 0.95 MV E max kaushik: 72.1 cm/sec PA V2 max: 264.5 cm/sec MV A max kaushik: 72.1 cm/sec PA V2 mean: 189.1 cm/sec MV E/A: 1.0 PA mean P.2 mmHg Med Peak E' Kaushik: 6.7 cm/sec PA pr(Accel): 17.3 mmHg E/E' med: 10.8 Lat Peak E' Kaushik: 7.7 cm/sec E/E' lat: 9.4 E/e' average: 10.1 MV dec time: 0.25 sec SV(LVOT): 98.6 ml Reading Physician:
--- NOTE | 2024-01-18 10:28 | CM.DANOTE ---
Initial DCP Assessment Note Pt is a 73 yo female, resident of [place] , arrives with slurred speech. Patient visiting from her home in [place]. PCP: Livier Lee Payer: Raquel RUDD Reviewed chart, met w/patient to introduce self and role. Patient is retired, lives independently in [place], states she plans to discharge home with her sister. Patient appreciative for the visit, denies needs from this CM team. No barriers identified at this time to patient's safe discharge home w/family to assist; close outpatient f/u recommended. CM team will plan to follow clinical course closely in case any DC needs or concerns arise. JO Godoy Discharge Planning/Care Management CM Discharge Assessment Start: 01/18/24 10:24 Freq: Status: Active Protocol: Document 01/18/24 10:24 [place] (Rec: 01/18/24 10:27 [place]NE [id number]) Discharge Planning Assessment Assigned Hand Mixer JO Xiong DPOA/Assigned Designee Name sister Matias Contact Information [phone] Advance Directives? No History Provided By Patient,Medical Record Prior Living Arrangements House Household Members none Type of transporation used prior to Drives own vehicle admit Independent with ADL's Yes Is patient alert and oriented? Yes Barriers to Discharge No Discharge Plan Home Transportation Arrangement Sister Referrals Initiated None needed
--- NOTE | 2024-01-18 10:32 | PT.IIE ---
Medical History (Last Reviewed 01/17/24 @ 19:53 by Roger Madrigal DO) HLD (hyperlipidemia) HTN (hypertension) Obesity MANDY (obstructive sleep apnea) Pulmonary HTN Physical Therapy Inpatient Evaluation/Re-Eval M2 PT-IP Current Condition Start: 01/18/24 10:13 Freq: NEEDED Status: Active Protocol: Document 01/18/24 10:15 MB (Rec: 01/18/24 10:32 MB [id number]) Physical Therapy Current Condition Current Condition Evaluation Date 01/18/24 Treatment Diagnosis Acute stroke M3 PT-IP Subjective Start: 01/18/24 10:13 Freq: NEEDED Status: Active Protocol: Document 01/18/24 10:15 MB (Rec: 01/18/24 10:32 MB [id number]) Subjective Physical Therapy Visit Type Type Initial Evaluation Visit Start Time 10:15 Visit Stop Time 10:25 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 Patient Goals To go back to her sister's one night and then go home. Therapy Pain Assessment Pain When Pain Assessed At Rest Pain Present Pain Present Denied Pain M4 PT-IP Mobility and Gait Start: 01/18/24 10:13 Freq: NEEDED Status: Active Protocol: Document 01/18/24 10:15 MB (Rec: 01/18/24 10:32 MB [id number]) PT-Bed Mobility Assessment Rolling Level of Assist Independent Supine to Sit Supine to Sit Independent Sit to Supine Sit to Supine Independent Scooting Scooting to Edge of Bed Independent Scooting Up and Down in Bed Independent PT-Transfer Assessment Sit to and From Stand Sit to and from Stand Independent Equipment Transfer Assistive Device Gait Belt Orthotic/Prosthetic Devices or Brace: No Transfers Transfer Destination Bed Transfer Technique Ambulation Transfer Ability Level of Assist Independent Comments Mobility Comments 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 and history of left ankle injury and foot drop Gait Assessment Gait Gait Assistance Required: Independent Distance (Feet) 75 Able to Maintain Weight Bearing Status Yes During Gait Assistive Devices Assistive Device Gait Belt Orthotic/Prosthetic Devices or Brace: No Gait Deviations General Gait Pattern Decreased Stride Length,Wide Based Gait Factors Limiting Gait Function Factors Limiting Gait Function Abnormal Tonal Influences, Decreased Strength,Limited Range of Motion,Poor Balance Comments Gait Comments Pt with baseline left foot drop and reports of leg length discrepancy and gait pattern is somewhat step-to in nature Stair Climbing Assessment Evaluation Level of Assist On Stairs Independent Devices Stair Climbing Assistive Devices Left Railing,Right Railing Technique/Endurance Stair Climbing Direction Ascend and Descend Stair Climbing Technique Step Over Step Number of Steps Climbed 3 Query Text: Stair Climbing Set # Repetitions (reps) 1 PT-Balance Assessment Sitting Balance and Reactions Static Sitting Balance Ability Normal Dynamic Sitting Balance Ability Normal Standing Balance and Reactions Static Standing Balance Ability Normal Dynamic Standing Balance Ability Good Device Used None M5 PT-IP Objective Assessments Start: 01/18/24 10:13 Freq: NEEDED Status: Active Protocol: Document 01/18/24 10:15 MB (Rec: 01/18/24 10:32 MB [id number]) Orientation Orientation/Cognition Level of Alertness Alert Orientation Name,Age,Birthday,Month,Date, Year,Day of Week,Place, Situation Language Function Ability No Deficits Noted Safety Awareness Understands Safety Issues Memory Description No Deficits Noted Comments Mildly slurring of speech stil noticed by pt and PT Gross Range of Motion Upper Extremity ROM Impairments Defer to OT Lower Extremity ROM Assessment Left Impaired Impairments LLE baseline foot drop Strength Lower Extremity Strength Assessment Left Impaired Knee 4+/5 B Ankle L ankle foot drop Sensation Assessment Sensation Gross Sensation WNL M6 PT-IP Treatment Start: 01/18/24 10:13 Freq: NEEDED Status: Active Protocol: Document 01/18/24 10:15 MB (Rec: 01/18/24 10:32 MB [id number]) Physical Therapy Treatment Education Education Provided Safety M7 PT-IP Assessment and Plan Start: 01/18/24 10:13 Freq: NEEDED Status: Active Protocol: Document 01/18/24 10:15 MB (Rec: 01/18/24 10:32 MB [id number]) PT Summary Assessment and Plan Potential Rehabilitation Potential Good Status of Condition at Evaluation Evolving Summary Impairments ROM,Strength,Balance, Coordination,Gait,Activity Tolerance Progress Towards Goals Safe For Discharge Assessment Summary Pt is a 73 y/o female who states she got sunburned after out whale watching on Thursday, two days ago, and experienced stroke symptoms same day. Slurred speech is mildly noticeable. Pt is I with mobility and has baseline LE changes including left foot drop. No further acute PT needs. Recommend OPPT as appropriate at d/c for balance and strengthening training. Pt states she will return home to [place] tomorrow. Frequency of Treatment Frequency Of Treatment Discharge Weight Bearing Status Weight Bearing Status Weight Bear as Tolerated Recommendations To Nursing Amount of Assist Needed Independent Discharge Recommendations PT Discharge Recommendations Home with Assistance, Outpatient PT Transportation Needs at Discharge Private Vehicle
[2024-01-18 11:00] VITALS: BP 155/76; PULSE 51; RESP 16; TEMP 36.6; O2SAT 95
--- NOTE | 2024-01-18 12:09 | PC.NURSE ---
Patient NIH scale a 2. Patient has an asymmetrical smile to the left side and some slight aphagia when speaking. She has worked with physical therapy and had her echo. She was taken down to MRI this am but was unable to have this done as she was to broad for the machine. She is sitting up in her chair and eating lunch now.
--- NOTE | 2024-01-18 13:11 | P.DS_ITS ---
History of Present Illness History of Present Illness Chief complaint: slurred speech Narrative: From H&P: This is a 73 year old female with PMH of HTN, HLD, pulmonary HTN, obesity, MANDY on CPAP, CKD III who presents with waxing and waning slurred speech with progression to L facial droop. Symptoms started around 0830 this morning and were normal at 0530. She is visiting from [place] on a whale watching trip. she was initially evaluated by EMS whom did not think she had a stroke at the time, but as symptoms progressed to left facial droop over the course of the day she decided to come to the ER. She denies recent chest pain, palpitations. She has chronic dyspnea on exertion unchanged. No fever, chills, abdominal pain, nausea, vomiting or diarrhea. No worse LE swelling than normal. In the ER, she was hypertensive but the remaineder of her vitals were unremarkable. Labs were unremarkable except for cr 1.08, Mg 1.5. UDS was negative. She was admitted for further management of presumed acute stroke. Discharge Providers Provider Date of admission: 01/17/24 17:42 Discharge Date: 01/18/24 Primary care physician: Neil Aparicio MD Consults: 01/17/24 18:18 Consult to Occupational Therapy Evaluate & Treat Comment: Physician Instructions: Evaluate and treat Consult to Physical Therapy Evaluate & Treat Comment: Physician Instructions: Evaluate and Treat Consult to Speech Therapy Evaluate & Treat Comment: Physician Instructions: Evaluate and treat Discharge provider: Cecil Schrader MD Summary Hospital Course Discharge Diagnosis: 1. CVA, acute, present on admission and active. - CT and CTA without acute findings - PT/OT speech orders - gave plavix load, continue asa and plavix x21 days, recommend changing from asa to plavix chronically after unless evidence of afib. - atorvastatin 40 mg nightly changed from home simvastatin 10. - limited TTE order, please see copied prior TTE report from cardiology documentation ([place]). No documentation of lack of PFO / atrial shunt. Ordered limited TTE to rule out PFO. 2. Hypertension, present on admission and active. - continue home medications, allowing for permissive HTN. Changing nonformulary nebivolol to metoprolol. 3. MANDY on CPAP, present on admission and active. - continue home CPAP 4. Pulmonary hypertension, present on admission and active. - hold home sildenafil 5. Hyperlipidemia, present on admission and active. - increase statin as noted above 6. Hypomagnesemia, present on admission and active. - replete with 2g IV x1. - repeat Mg in the AM 7. Morbid obesuty with BMI 47, present on admission and active. Hospital Course: She was admitted with whom stroke with a left facial droop and slurred speech. She was evaluated by therapies and did well physical therapy, occupational therapy, and speech. She was cleared for discharge home with outpatient workup. She was visiting from her sister lives in [place]. She has had reasonable blood pressures with the addition of metoprolol. MRI was ordered but she exceeds the capacity of are scanning so she understands that she will have to follow up outpatient with her provider to pursue an MRI in the [place] area. CT angiogram of the neck and head was negative. She was able to ambulate and use her arms without difficulty. She was felt to be stable for discharge on the day of discharge with dual antiplatelet therapy for 21-30 days, then likely Plavix monotherapy. She was switched from simvastatin to atorvastatin 40 mg daily. Status at Discharge Cognitive/behavioral status at discharge: oriented Functional status at discharge: independent ambulation Overall status at discharge: patient is progressing back to baseline Time Spent with Patient Time spent: Greater than 30 minutes Exam Vital Signs (past 8 hours): - 01/18/24 05:26 01/18/24 05:26 01/18/24 07:30 Temperature 98.6 F 98.1 F Pulse Rate 60 55 L Respiratory Rate 17 20 Blood Pressure 149/87 H 139/96 H Pulse Oximetry 97 97 96 Oxygen Delivery Method Oxygen Flow Rate 0 0 01/18/24 11:00 01/18/24 12:06 Temperature 97.9 F Pulse Rate 51 L Respiratory Rate 16 Blood Pressure 155/76 H Pulse Oximetry 95 Oxygen Delivery Method Room Air Oxygen Flow Rate 0 Oxygen Delivery Method Room Air Oxygen Flow Rate 0 Narrative Exam Narrative: NAD, alert and oriented. Fluent speech. Lungs are clear, normal rate and effort. Heart is regular, no murmur gallop or rub. Abdomen is soft, non distended. Extremities are free of edema. Left facial droop and mild slurring of speech. She has normal strength of the arms and legs. Normal gait. Objective ECG Impression: NSR Imaging CT brain and CTA head and neck:: Radiologist's impression: 1. No significant intracranial arterial abnormality is seen. 2. No significant abnormality is seen within the arteries of the neck. 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 3. No area of abnormal intracranial enhancement. 4. Right maxillary sinusitis. Brain: 1. Finding could represent left pontine infarction of indeterminate age. No acute intracranial bleed, midline shift or mass effect. 2. Age related volume loss and moderate white matter chronic small vessel ischemic changes. Labs 01/18/24 06:31 01/18/24 06:31 Labs: Laboratory Results - last 24 hr 01/17/24 01/17/24 01/18/24 15:55 16:55 06:31 WBC 8.5 6.7 RBC 5.55 H 5.30 H Hgb 11.7 L 11.2 L Hct 36.9 34.9 L MCV 66.5 L 65.9 L MCH 21.1 L 21.2 L MCHC 31.6 32.1 RDW 15.6 H 15.9 H Plt Count 223 210 Neut % (Auto) 72.9 62.1 Lymph % (Auto) 18.0 L 29.0 [place] % (Auto) 7.0 5.9 Eos % (Auto) 1.9 L 2.4 Baso % (Auto) 0.2 0.6 Neut # (Auto) 6200 4100 Lymph # (Auto) 1500 1900 [place] # (Auto) 600 400 Eos # (Auto) 200 200 Baso # (Auto) 0 0 RBC Morphology See below Not Reportable Hypochromasia 2+ H Microcytosis 1+ H 2+ H Ovalocytes 1+ H PT 10.8 INR 0.9 APTT 27 Sodium 139 140 Potassium 4.1 4.0 Chloride 106 105 Carbon Dioxide 26 28 BUN 23 H 16 Creatinine 1.08 H 1.00 Estimated GFR 55 L > 60 BUN/Creatinine Ratio 21.3 16.0 Glucose 105 127 H Hemoglobin A1c 6.3 H Calcium 9.5 9.1 Magnesium 1.5 L 1.9 Total Bilirubin 0.7 0.7 AST 26 24 ALT 19 16 Alkaline Phosphatase 57 49 Total Creatine Kinase 184 H Troponin I < 0.012 Total Protein 7.2 6.4 Albumin 4.2 4.0 Globulin 3.0 2.4 Albumin/Globulin Ratio 1.4 1.7 Triglycerides 147 Cholesterol 145 LDL Cholesterol, Calc 61 HDL Cholesterol 55 TSH 1.15 U Opiates 300ng/mL cut Negative Ur Oxycodone Screen Negative Urine Methadone Screen Negative Ur Barbiturates Screen Negative U Tricyclic Antidepress Negative Ur Phencyclidine Scrn Negative Ur Amphetamines Screen Negative U Methamphetamines Scrn Negative Ur MDMA Scrn (Ecstasy) Negative U Benzodiazepines Scrn Negative Urine Cocaine Screen Negative U Marijuana (THC) Screen Negative Urine pH Normal Urine Specific [place] Normal Ur Creatinine Normal PFSH Medical History Pulmonary HTN HLD (hyperlipidemia) HTN (hypertension) Obesity MANDY (obstructive sleep apnea) Social History household members: none Smoking Status: Never smoker alcohol intake: current Discharge Assessment & Plan Assessment and Plan Assessment: 1. CVA, acute, present on admission and active. 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 2. Hypertension, present on admission and active. - continue home medications, allowing for permissive HTN. Changing nonformulary nebivolol to metoprolol. 3. MANDY on CPAP, present on admission and active. - continue home CPAP 4. Pulmonary hypertension, present on admission and active. - hold home sildenafil 5. Hyperlipidemia, present on admission and active. - increase statin as noted above 6. Hypomagnesemia, present on admission and active. - replete with 2g IV x1. - repeat Mg in the AM 7. Morbid obesuty with BMI 47, present on admission and active. Plan of Treatment: Discharge home with dual antiplatelet therapy for 21-30 days, close follow up with PCP. She was also switched to atorvastatin 40 daily and metoprolol 25 daily. Her previous beta katelynn and simvastatin will be stopped. She understands call 911 for acute stroke symptoms. Discharge Plan Discharge Plan Patient Disposition: Home Provider Discharge Comment: Stable for discharge, we will be on dual antiplatelet therapy and statin with close follow up with PCP for outpatient MRI and an open MRI admission. Discharge orders & Medications Prescriptions: New clopidogrel [Plavix] 75 mg tablet 75 mg PO DAILY Qty: 30 0RF atorvastatin 40 mg tablet 40 mg PO BEDTIME Qty: 30 0RF metoprolol succinate [Toprol XL] 25 mg tablet extended release 24 hr 25 mg PO DAILY Qty: 30 0RF Continued lisinopril 40 mg tablet 40 mg PO BID sildenafil (pulm.hypertension) 20 mg tablet 20 mg PO TID hydrochlorothiazide 12.5 mg tablet 12.5 mg PO DAILY nebivolol [Bystolic] 5 mg Tablet 5 mg PO DAILY milk thistle 500 mg Capsule 1,000 mg PO BIDWM Rx Instructions: give with meal/snack aspirin 81 mg Tablet,Chewable 81 mg PO DAILY acetaminophen 500 mg Capsule 1,000 mg PO BID cholecalciferol (vitamin D3) [Vitamin D3] 25 mcg (1,000 unit) Capsule 25 mcg PO DAILY Discontinued simvastatin 10 mg tablet 10 mg PO BEDTIME Medication counseling provided by Pharmacist: No Follow up/Referrals: Neil Aparicio MD [Primary Care Provider] - Discharge Health Status Multidrug resistant organism: No MDRO Diet/Activity/Treatments Diet: Low-cholesterol Visit Report/Discharge Packet Stand Alone Forms: Patient Portal/API, Stroke Signs & Symptoms Discharge Data Primary Care Provider: Neil Aparicio Attending Provider: Roger Madrigal Admit Date/Time: 01/17/24 17:42 Quality VTE Deep Vein Thrombosis/Pulmonary Embolism Present on Admission: No
--- NOTE | 2024-01-26 07:20 | PC.NURSE ---
Late Entry: Magnesium infusion initiated 01/16 at 2036 complete at 2237.
== END 2024-01-18 14:00 | disposition home or self-care (01) ==
LOC: ED 17:32 → AC 17:43
PROVIDERS: Admitting Provider Internal Medicine; Emergency Provider Emergency Medicine; PCP Family Medicine; Referring Provider Emergency Medicine; Visit Provider Internal Medicine
DX: I63.9 Cerebral infarction, unspecified (principal); R29.702 NIHSS score 2; G47.33 Obstructive sleep apnea (adult) (pediatric); I10 Essential (primary) hypertension; E78.5 Hyperlipidemia, unspecified; I27.20 Pulmonary hypertension, unspecified; E66.01 Morbid (severe) obesity due to excess calories; Z68.42 Body mass index [BMI] 45.0-49.9, adult; E83.42 Hypomagnesemia
CPT/HCPCS: 70450; 70496; 70498; 71045; 80053; 80061; 80305; 81003; 82550; 83036; 83735; 84443; 84484; 85025; 85610; 85730; 92610; 93307; 96365; 96366; 97161; 97165; 99284; G0378; J3475; Q9957; Q9967